=== PATIENT | female | born 1960 | race Caucasian/White ===

== ENCOUNTER 2016-12-26 06:05 | Emergency (ER) | payer OTHER ==
[~2016-12-26] VITALS: Ht 162.6 cm; Wt 69.7 kg
[2016-12-26 06:07] VITALS: BP 162/101
[2016-12-26] MEDS ORDERED: PROPARACAINE OPHTH 0.5%, 15ML ONE (06:22)
[2016-12-26] MEDS ORDERED: FLUORESCEIN OPHTHALMIC 1 MG STRIP ONE (06:22)
[2016-12-26] MEDS ORDERED: PROPARACAINE OPHTH 0.5%, 15ML EACHEYE ONE (07:00)
[2016-12-26] MEDS ORDERED: FLUORESCEIN OPHTHALMIC 1 MG STRIP EACHEYE ONE (07:00)
== END 2016-12-26 08:01 | disposition home or self-care (01) ==
LOC: ED 06:48
DX: H18.822 Corneal disorder due to contact lens, left eye (principal); I10 Essential (primary) hypertension; M19.90 Unspecified osteoarthritis, unspecified site; F17.200 Nicotine dependence, unspecified, uncomplicated
CPT/HCPCS: 99283

== ENCOUNTER 2017-08-30 20:28 | Emergency (ER) | payer SELFPAY ==
[~2017-08-30] VITALS: Ht 162.6 cm; Wt 68.3 kg
[2017-08-30 20:31] VITALS: BP 132/89
[2017-08-30] MEDS ORDERED: OFLOXACIN EAR DROPS 0.3%, 5ML OTIC ONE (21:00)
[2017-08-30] MEDS ORDERED: CIPROFLOXACIN DEXAMETHASONE EAR SUSP 7.5ML RIGHT EAR ONE (21:30)
[2017-08-30] MEDS ORDERED: IBUPROFEN 200 MG TABLET PO ONE (22:30)
[2017-08-30] MEDS ORDERED: IBUPROFEN 200 MG TABLET ONE (22:34)
== END 2017-08-30 22:56 | disposition home or self-care (01) ==
LOC: ED 22:40
DX: H60.501 Unspecified acute noninfective otitis externa, right ear (principal); K21.9 Gastro-esophageal reflux disease without esophagitis; M19.90 Unspecified osteoarthritis, unspecified site; I10 Essential (primary) hypertension; Z88.0 Allergy status to penicillin; Z90.710 Acquired absence of both cervix and uterus
CPT/HCPCS: 99283

== ENCOUNTER → 2018-07-11 | Outpatient (CLI) | payer MEDICARE | END | disposition home or self-care (01) | LOC: CFH 13:52 | PROVIDERS: ATTEND Family Medicine | DX: Z12.31 Encounter for screening mammogram for malignant neoplasm of breast (principal) | CPT/HCPCS: 77063; 77067 ==

== ENCOUNTER 2019-12-09 04:47 | Emergency (ER) | payer MEDICARE ==
[~2019-12-09] VITALS: Ht 162.6 cm; Wt 68.2 kg
[~2019-12-09 04:47] MED LIST: CIPR500T87 PO; LISI1TAB23 PO; MELO15TA24 PO; METO25TA35 PO; METR-90 PO; VANC1VIA3 PO
[2019-12-09 04:48] VITALS: BP 134/81
--- NOTE | 2019-12-09 05:02 | NUR ---
assessment made. PA at bedside.
[2019-12-09] MEDS ORDERED: ONDANSETRON 2MG/ML, 2ML ONE (05:08)
[2019-12-09] MEDS ORDERED: HYDROmorphone 1 MG/ML, 1ML INJ ONE (05:08)
--- NOTE | 2019-12-09 05:27 | NUR ---
IV placed. medicated for pain. urine sent to lab. 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
[2019-12-09] MEDS ORDERED: SODIUM CHLORIDE FLUSH 10ML SYR IVF ONE (05:30)
[2019-12-09] MEDS ORDERED: HYDROmorphone 2 MG/ML, 1ML IVPush PRN (05:30)
[2019-12-09] MEDS ORDERED: ONDANSETRON 2MG/ML, 2ML IVPush ONE (05:30)
[2019-12-09 05:37] LABS: MICROSCOPIC NOT IND
--- NOTE | 2019-12-09 05:43 | NUR ---
patient to CT scan.
[2019-12-09 05:47] LABS: BASOPHILS # (AUTO) 0.05 x10^3/uL (0-0.1); BASOPHILS % (AUTO) 1 % (0-1); EOSINOPHILS # (AUTO) 0.26 x10^3/uL (0-0.4); EOSINOPHILS % (AUTO) 3 % (1-7); LYMPHOCYTES # (AUTO) 1.89 x10^3/uL (1-3.4); LYMPHOCYTES % (AUTO) 25 % (22-44); MD NO; MEAN CORPUSCULAR HEMOGLOBIN 27.9 pg (27.0-34.8); MEAN CORPUSCULAR HGB CONC 32.6 g/dL (32.4-35.8); MEAN CORPUSCULAR VOLUME 85.4 fL (80-100); MEAN PLATELET VOLUME 7.1 fL (7.4-10.4); MONOCYTES # (AUTO) 0.85 x10^3/uL (0.2-0.8); MONOCYTES % (AUTO) 11 % (2-9); NEUTROPHILS # (AUTO) 4.66 x10^3/uL (1.8-6.8); NEUTROPHILS % (AUTO) 61 % (42-75); PLATELET COUNT 337 x10^3/uL (130-400); RED BLOOD COUNT 4.46 x10^6/uL (3.82-5.3); RED CELL DISTRIBUTION WIDTH 14.8 % (9.6-15.2)
[2019-12-09 05:47] LABS: CULTURE INDICATED? NO
--- NOTE | 2019-12-09 05:53 | NUR ---
back from CT scan. awaiting result.
[2019-12-09 05:58] LABS: ALANINE AMINOTRANSFERASE 30 U/L (12-78); ALBUMIN 3.6 g/dL (3.4-5.0); ANION GAP 7 mmol/L (5-15); CALCIUM 9.4 mg/dL (8.5-10.1); CHLORIDE 108 mmol/L (98-107)
[2019-12-09 06:00] LABS: ALKALINE PHOSPHATASE 91 U/L (45-117); BILIRUBIN,TOTAL 0.3 mg/dL (0.2-1.0); TOTAL PROTEIN 7.3 g/dL (6.4-8.2)
--- NOTE | 2019-12-09 06:23 | NUR ---
PA at bedside for re-evaluation.
[2019-12-09] MEDS ORDERED: KETOROLAC 30 MG/1 ML ONE (06:28)
[2019-12-09] MEDS ORDERED: KETOROLAC 30 MG/1 ML IVPush ONE (06:30)
== END 2019-12-09 07:29 | disposition home or self-care (01) ==
LOC: ED 06:23
DX: M54.6 Pain in thoracic spine (principal); R10.9 Unspecified abdominal pain; R30.0 Dysuria; R00.0 Tachycardia, unspecified; Z88.0 Allergy status to penicillin
CPT/HCPCS: 36415; 74176; 80053; 81003; 85025; 87040; 96374; 96375; 99284; J1170; J1885; J2405

== ENCOUNTER → 2020-02-08 | Outpatient (CLI) | payer MEDICARE | END | disposition home or self-care (01) | LOC: CFH 07:57 | PROVIDERS: ATTEND Orthopaedic Surgery | DX: S52.572D Other intraarticular fracture of lower end of left radius, subsequent encounter for closed fracture with routine healing (principal); S52.612D Displaced fracture of left ulna styloid process, subsequent encounter for closed fracture with routine healing; M18.9 Osteoarthritis of first carpometacarpal joint, unspecified; X58.XXXD Exposure to other specified factors, subsequent encounter ==

== ENCOUNTER 2020-02-15 10:41 | Day surgery (SDC) | payer MEDICARE ==
[~2020-02-15] VITALS: Ht 162.6 cm; Wt 63.8 kg
[2020-02-15 11:15] VITALS: BP 143/95
[2020-02-15] MEDS ORDERED: LACTATED RINGERS 1,000 ML IV SCH (11:18)
[2020-02-15] MEDS ORDERED: LISI1TAB20 PO (11:23)
[2020-02-15] MEDS ORDERED: HYDROCODONE-ACETAMIN PO (11:23)
[2020-02-15] MEDS ORDERED: IBUPROFEN PO (11:23)
[2020-02-15] MEDS ORDERED: GABAPENTIN PO (11:23)
[2020-02-15] MEDS ORDERED: CHLORHEXIDINE 15 ML UDC ONE (11:33)
[2020-02-15 11:50] VITALS: BP 143/95
[2020-02-15] MEDS ORDERED: hydrALAzine 20 MG/ML, 1ML IV PRN (12:00)
[2020-02-15] MEDS ORDERED: CHLORHEXIDINE 15 ML UDC MM ONE (12:00)
[2020-02-15] MEDS ORDERED: MEPERIDINE/PF 25MG/0.5ML IVPush PRN (12:00)
[2020-02-15] MEDS ORDERED: LABETALOL 5MG/ML, 20ML IV PRN (12:00)
[2020-02-15] MEDS ORDERED: PROMETHAZINE 25 MG/ML, 1ML IVPush PRN (12:00)
[2020-02-15] MEDS ORDERED: DIPHENHYDRAMINE 50 MG/ML, 1ML IVPush PRN (12:00)
[2020-02-15] MEDS ORDERED: HYDROmorphone 1 MG/ML, 1ML INJ IVPush PRN (12:00)
[2020-02-15] MEDS ORDERED: HALOPERIDOL 5 MG/ML IV PRN (12:00)
[2020-02-15] MEDS ORDERED: OXYcodone 5 MG/5 ML ORAL.SOL UDC PO PRN (12:00)
[2020-02-15] MEDS ORDERED: MIDAZOLAM 1 MG/ML, 2ML ONE ×2 (12:02)
[2020-02-15] MEDS ORDERED: FENTANYL PF 250 MCG/5ML ONE (12:02)
[2020-02-15] MEDS ORDERED: BUPIVACAINE/PF 0.5% ONE (12:26)
[2020-02-15] MEDS ORDERED: ROPIvacaine/PF 0.2%, 20 ML ONE (12:50)
[2020-02-15] MEDS ORDERED: METOPROLOL 1 MG/ML, 5ML ONE (13:45)
[2020-02-15] MEDS ORDERED: CEFAZOLIN 1,000 MG ONE (14:53)
[2020-02-15] MEDS ORDERED: PROPOFOL 10 MG/ML, 20ML ONE (14:53)
[2020-02-15] MEDS ORDERED: ROCURONIUM 10MG/ML,5ML ONE (14:53)
[2020-02-15] MEDS ORDERED: DEXAMETHASONE 4 MG/ML, 1ML ONE (14:53)
[2020-02-15] MEDS ORDERED: GLYCOPYRROLATE 0.2MG/1ML, 5ML ONE (14:53)
[2020-02-15] MEDS ORDERED: ONDANSETRON 2MG/ML, 2ML ONE (14:53)
[2020-02-15] MEDS ORDERED: SUCCINYLCHOLINE 20 MG/ML, 10ML ONE (14:53)
[2020-02-15] MEDS ORDERED: NEOSTIGMINE 1 MG/ML, 10ML ONE (14:53)
[2020-02-15] MEDS ORDERED: FENTANYL PF 100 MCG/2ML ONE ×2 (15:13→15:41)
[2020-02-15] MEDS: FENTANYL PF 100 MCG/2ML IV PRN ×4 (15:15→15:56)
[2020-02-15] MEDS ORDERED: KETOROLAC 30 MG/1 ML ONE (15:24)
[2020-02-15] MEDS ORDERED: DIAZEPAM 5 MG TABLET ONE (15:32)
[2020-02-15] MEDS ORDERED: OXYcodone 5 MG/5 ML ORAL.SOL UDC ONE (15:32)
[2020-02-15] MEDS ORDERED: KETOROLAC 30 MG/1 ML IM PRN (16:00)
[2020-02-15] MEDS ORDERED: DIAZEPAM 5 MG TABLET PO ONE (16:00)
== END 2020-02-15 18:10 | disposition home or self-care (01) ==
LOC: OUT 10:41
PROVIDERS: ATTEND Orthopaedic Surgery
DX: S52.572D Other intraarticular fracture of lower end of left radius, subsequent encounter for closed fracture with routine healing (principal); Z11.59 Encounter for screening for other viral diseases; M19.90 Unspecified osteoarthritis, unspecified site; M81.0 Age-related osteoporosis without current pathological fracture; I10 Essential (primary) hypertension; X58.XXXD Exposure to other specified factors, subsequent encounter; Z79.899 Other long term (current) drug therapy; Z82.49 Family history of ischemic heart disease and other diseases of the circulatory system; Z87.891 Personal history of nicotine dependence; Z88.0 Allergy status to penicillin; Z98.890 Other specified postprocedural states
CPT/HCPCS: 25608; 73100; 87635; 93005; C1713; J0330; J0690; J1100; J1885; J2250; J2405; J2704; J2795; J3010; J7120; J2710